=== PATIENT | male | born 1960 | race Caucasian/White ===

== ENCOUNTER → 2024-11-30 | Outpatient (CLI) | LOC: M SOG 06:46 | PROVIDERS: ATTEND Neuromusculoskeletal Medicine, Sports Medicine | DX: M25.512 Pain in left shoulder (principal); M19.011 Primary osteoarthritis, right shoulder; M75.31 Calcific tendinitis of right shoulder ==

== ENCOUNTER 2024-12-31 09:37 | Emergency (ER) | payer MEDICARE, BC ==
[2024-12-31 11:05] LABS: BASO # 0.1 10^3/uL (0.0-0.2); BASO % 0.6 % (0.0-1.0); EOS # 0.0 10^3/uL (0.0-0.5); EOS % 0.5 % (0.0-3.0); LYMPH # 0.5 10^3/uL (1.5-5.0); LYMPH % 5.8 % (24.0-44.0); MONO # 1.3 10^3/uL (0.0-0.8); MONO % 16.9 % (2.0-8.0); NEUTROPHILS # 5.9 10^3/uL (1.5-8.5); NEUTROPHILS % 75.6 % (36.0-66.0); PLATELET COUNT, AUTOMATED 161 10^3/uL (150-450)
[2024-12-31] MEDS: diphenhydrAMINE 50 MG/ML VIAL IV STA (11:25)
[2024-12-31 11:28] LABS: ALT/SGPT 11.0 U/L (7.0-40); AST/SGOT 12.0 U/L (<34); CALCIUM LEVEL 8.6 MG/DL (8.3-10.6); CARBON DIOXIDE LEVEL 26.0 MMOL/L (20-31); CHLORIDE LEVEL 99.0 MMOL/L (98-107); CREATININE FOR GFR 0.95 MG/DL (0.70-1.30); GLOMERULAR FILTRATION RATE 88.8 (>49); POTASSIUM SERUM 3.6 MMOL/L (3.5-5.1); SODIUM LEVEL 134.0 MMOL/L (136-145)
[2024-12-31] MEDS ORDERED: ISOVUE-370 76% 100 ML VIAL As Ordered ONE (11:36)
[2024-12-31 11:46] LABS: INR 0.98
[2024-12-31] MEDS ORDERED: CIPR-249 PO (13:23)
[2024-12-31] MEDS ORDERED: METR-265 PO (13:23)
[2024-12-31 13:29] VITALS: BP 166/78; TEMP 99.5; O2SAT 96
[2024-12-31] MEDS: CIPROFLOXACIN 500 MG TABLET PO ONE (13:30)
== END 2024-12-31 13:34 | disposition home or self-care (01) ==
LOC: M ED 10:24
DX: K57.32 Diverticulitis of large intestine without perforation or abscess without bleeding (principal); I25.119 Atherosclerotic heart disease of native coronary artery with unspecified angina pectoris; J45.909 Unspecified asthma, uncomplicated; Z88.0 Allergy status to penicillin; Z88.1 Allergy status to other antibiotic agents; Z88.8 Allergy status to other drugs, medicaments and biological substances; Z91.09 Other allergy status, other than to drugs and biological substances; Z91.013 Allergy to seafood; Z79.2 Long term (current) use of antibiotics
CPT/HCPCS: 74177; 80053; 83605; 85025; 85610; 85730; 86850; 86900; 86901; 96374; 99284; J1200; J2919; Q9967